=== PATIENT | male | born 1960 | race Hispanic/Latino ===

== ENCOUNTER 2017-09-05 10:10 | Emergency (ER) | payer OTHER ==
[2017-09-05 10:29] VITALS: RESP 18; TEMP 98.4; BMI 21.4
[2017-09-05] MEDS ORDERED: Sodium Chloride 0.9% 1,000 ML IV STA (11:26)
--- NOTE | 2017-09-05 11:29 | ED PDOC ---
Arrival/HPI - General Chief Complaint: GI Problem Time Seen by Provider: 09/05/17 10:55 Historian: Patient - History of Present Illness Narrative History of Present Illness (Text): 09/05/17 11:26 A 56 year old male, with no significant past medical history, presents to the emergency department with 2 week duration diarrhea. The patient states that he recently discontinued a medication, Lexapro, that he was taking for 12 years when the symptoms began 1-2 weeks after discontinuing. When he began to take the same medication once again the symptoms did not resolve. He also notes that he has been feeling a "flutter" like heart symptom recently that occurs randomly. He notes that he has been under a lot of recent stress. He reports in the past he has had similar symptoms when he is anxious or under stress. States current symptoms are different in the sense that diarrhea occurs in the morning "three to four loose stools" and then resolves later in the day. No bloody stool. No recent travel. No heat or cold intolerance. states in the morning "he has a tough time getting going" for what she perceives as being extremely anxious. No suicidal or homicidal ideation. Denies depression. PMD: Dr. Gamboa Time/Duration: Other (2 weeks) Symptom Onset: Sudden Symptom Course: Unchanged Activities at Onset: Rest, Light Context: Home Past Medical History - Provider Review Nursing Documentation Reviewed: Yes - Travel History If Yes, travel location?: [place] - Past History Past History: No Previous - Infectious Disease Hx of Infectious Diseases: None - Cardiac Hx Cardiac Disorders: No - Pulmonary Hx Respiratory Disorders: No - Neurological Hx Neurological Disorder: No - HEENT Hx HEENT Disorder: No - Renal Hx Renal Disorder: No - Endocrine/Metabolic Hx Endocrine Disorders: No - Hematological/Oncological Hx Blood Disorders: No - Integumentary Hx Dermatological Disorder: No - Musculoskeletal/Rheumatological Hx Musculoskeletal Disorders: No Hx Arthritis: No (knees) - Gastrointestinal Hx Gastrointestinal Disorders: No - Genitourinary/Gynecological Hx Genitourinary Disorders: No - Psychiatric Hx Anxiety: Yes Hx Depression: Yes Hx Substance Use: No - Past Surgical History Past Surgical History: No Previous - Anesthesia Hx Anesthesia: No Hx Anesthesia Reactions: No Hx Malignant Hyperthermia: No - Suicidal Assessment Feels Threatened In Home Enviroment: No Family/Social History - Physician Review Nursing Documentation Reviewed: Yes Family/Social History: No Known Family HX Smoking Status: Never Smoked Hx Alcohol Use: No Hx Substance Use: No Allergies/Home Meds Allergies/Adverse Reactions: Allergies No Known Allergies Allergy (Verified 12/12/12 22:55) Home Medications: Home Meds Medication Instructions Recorded Confirmed Escitalopram Oxalate [Lexapro] 10 mg PO DAILY 12/12/12 09/05/17 Review of Systems - Review of Systems Constitutional: Fatigue. absent: Fevers, Night Sweats Eyes: absent: Vision Changes, Eye Pain ENT: absent: Hearing Changes Respiratory: absent: SOB, Cough, Wheezing Cardiovascular: Palpitations. absent: Chest Pain, Edema, Calf Pain, ROSARIO, Orthopnea Gastrointestinal: Abdominal Pain, Diarrhea. absent: Stool Changes, Constipation , Nausea, Vomiting, Hematemesis, Anorexia Genitourinary Male: absent: Dysuria, Frequency, Hematuria, Urinary Output Changes Musculoskeletal: absent: Back Pain, Neck Pain Skin: absent: Rash Neurological: absent: Headache, Dizziness, Focal Weakness Endocrine: Diaphoresis. absent: Polyuria, Polydipsia Hemo/Lymphatic: absent: Easy Bleeding, Easy Bruising Psychiatric: Anxiety. absent: Depression, Suicidal Ideation Physical Exam - Physical Exam Narrative Physical Exam (Text): 09/05/17 11:31 Head: Atraumatic. Normocephalic. Eyes: PERRL. EOMI. Conjunctivae are not pale. No proptosis. No exopthalmos. ENT: Mucous membranes are moist and intact. Oropharynx is clear and symmetric. Neck: Supple. Full ROM. No JVD. No lymphadenopathy. No thyromegaly. Cardiovascular: Regular rate. Regular rhythm. No murmurs, rubs, or gallops. Distal pulses are 2+ and symmetric. Pulmonary/Chest: No evidence of respiratory distress. Clear to auscultation bilaterally. No wheezing, rales or rhonchi. Abdominal: Soft and non-distended. There is no tenderness. No rebound, guarding, or rigidity. No organomegaly. Good bowel sounds. Back: No CVA tenderness. No midline tenderness. Extremities: No edema. No cyanosis. No clubbing. Full range of motion in all extremities. No calf tenderness. Skin: Skin is warm and dry. No petechiae. No purpura. Neurological: Alert, awake, and oriented. Not tremulous. Not hyperreflexive. NO focal motor or sensory deficits. No meningeal signs. Psychiatric: Good eye contact. Anxious. Denies depression or suicidal ideation. Vital Signs Reviewed: Yes Vital Signs Temp Pulse Resp BP Pulse Ox 09/05/17 16:45 62 18 104/65 99 09/05/17 15:46 73 18 115/67 99 09/05/17 12:25 67 18 124/78 100 09/05/17 10:18 98.4 F 69 18 111/79 99 Temperature: Afebrile Blood Pressure: Normal Pulse: Regular Respiratory Rate: Normal Appearance: Positive for: Well-Appearing, Non-Toxic, Comfortable Pain Distress: Mild Mental Status: Positive for: Alert and Oriented X 3 Medical Decision Making ED Course and Treatment: 09/05/17 11:31 Impression: A 56 year old male presents to the emergency department for 2 week duration diarrhea. Differential Diagnosis included but are not limited to: Anxiety vs. Medication Withdrawal vs. Endocrine Disorder vs. Colitis vs Inflammatory Bowel Disease Plan: -- EKG -- Chest X-ray -- Labs -- Urinalysis -- Pepcid and IV Fluids -- Reassess and disposition Prior Visits: Notes and results from previous visits were reviewed. Patient was last seen in the emergency department on 11/15/15 the patient was seen in the emergency department for dizziness. The patient was discharged home with a diagnosis of gastroenteritis on Nexium and Zofran. The patient was advised to follow up with PMD. Progress Notes: Patient's at bedside, supplements history. EKG with no acute st elevations. Exam not consistent with endocrine EMERGENCY, although I reviewed need to follow-up thyroid function tests with Dr. Gamboa. Symptoms for several weeks, appeared to develop after discontinuation of Lexapro. On exam, the patient was found to have NO abdominal pain, no chest pain or pleuritic discomfort. No hypoxia. No chest pain with exertion. No symptomatic arrhythmias noted on monitor. Patient has follow-up with applications engineer Dr. Joshi this Thursday. CHEST X-RAY Dictator : Joe Ann MD Report Date : 09/05/2017 13:56:03 IMPRESSION: No active disease. I reviewed with patient and family his medication, states Lexapro was prescribed by Dr. Kincaid several years ago. He reports some anxiety and increased stressors at work. He was evaluated by P[facility], and outpatient follow-up reviewed. Patient tolerated does of xanax in emergency department with benefit. Patient has been advised of caution taking Lexapro with xanax, although dose given in emergency department resulted in no respiratory distress or sedation. Patient evaluated by hospitalist in emergency department, as symptoms atypical for acute cardiac disease and he has cardiology follow-up, will discharge. Stressed need for follow-up with Dr. Gamboa, and re-evaluation of thyroid tests. - Lab Interpretations Lab Results: 09/05/17 11:37 09/05/17 11:37 Lab Results 09/05/17 11:53: POC Glucose (mg/dL) 88 09/05/17 11:37: Thyroxine (T4) 13.1 H, TSH 3rd Generation 0.70 09/05/17 11:37: Sodium 141, Chloride 104, Potassium 3.9, Carbon Dioxide 22, Anion Gap 19, BUN 17, Creatinine 1.0, Est GFR ( Amer) > 60, Est GFR (Non- Af Amer) > 60, Random Glucose 98, Calcium 9.4, Total Bilirubin 1.1, AST 18, ALT 22, Alkaline Phosphatase 69, Lactate Dehydrogenase 294 L, Total Creatine Kinase 62, Troponin I < 0.01, Total Protein 7.7, Albumin 4.7, Globulin 3.0, Albumin/ Globulin Ratio 1.6 09/05/17 11:37: pO2 23 L, VBG pH 7.41, VBG pCO2 38.0 L, VBG HCO3 24.1, VBG Total CO2 25.3, VBG O2 Sat (Calc) 57.3, VBG Base Excess -0.3 L, VBG Potassium 3.8, Sodium 137.0, Chloride 105.0, Glucose 95, Lactate 1.7, FiO2 21.0, Venous Blood Potassium 3.8 09/05/17 11:37: Urine Color Yellow, Urine Appearance Clear, Urine pH 6.0, Ur Specific [place] 1.010, Urine Protein Trace H, Urine Glucose (UA) Negative, Urine Ketones 40 H, Urine Blood Large H, Urine Nitrate Negative, Urine Bilirubin Negative, Urine Urobilinogen 0.2, Ur Leukocyte Esterase Negative, Urine RBC 2 - 5, Urine WBC 0 - 2, Urine Bacteria Few, Hyaline Casts 0 - 2 09/05/17 11:37: PT 11.8, INR 1.07, APTT 28.4 09/05/17 11:37: WBC 4.8, RBC 4.87, Hgb 14.7, Hct 42.2, MCV 86.7, MCH 30.2, MCHC 34.8, RDW 12.6, Plt Count 187, MPV 9.6, Gran % 66.5, Lymph % (Auto) 25.1, [place] % (Auto) 7.2 H, Eos % (Auto) 0.8 L, Baso % (Auto) 0.4, Gran # 3.21, Lymph # 1.2 , [place] # 0.4, Eos # 0.0, Baso # 0.02 I have reviewed the lab results: Yes - RAD Interpretation Radiology Orders: 09/05/17 11:26 CHEST PORTABLE [RAD] Stat - EKG Interpretation Interpreted by ED Physician: Yes Type: 12 lead EKG - Medication Orders Current Medication Orders: Discontinued Medications Alprazolam (Xanax) 0.25 mg PO STAT STA Stop: 09/05/17 13:59 Last Admin: 09/05/17 14:23 Dose: 0.25 mg Famotidine (Pepcid) 20 mg IVP STAT STA Stop: 09/05/17 11:27 Last Admin: 09/05/17 11:50 Dose: 20 mg IVP Administration Document 09/05/17 11:50 GMD (Rec: 09/05/17 11:50 GMD [id number]) Charges for Administration # of IVP Administrations 1 Sodium Chloride (Sodium Chloride 0.9%) 1,000 mls @ 1,000 mls/hr IV .Q1H STA Stop: 09/05/17 12:25 Last Admin: 09/05/17 11:34 Dose: 1,000 mls/hr eMAR Start Stop Document 09/05/17 11:34 GMD (Rec: 09/05/17 11:36 GMD [facility] [id number]) Intravenous Solution Start Date 09/05/17 Start Time 11:35 End Date 09/05/17 End time 12:35 Total Infusion Time 60 - Scribe Statement The provider has reviewed the documentation as recorded by the Emile Lane Provider Scribe Attestation: All medical record entries made by the Scribe were at my direction and personally dictated by me. I have reviewed the chart and agree that the record accurately reflects my personal performance of the history, physical exam, medical decision making, and the department course for this patient. I have also personally directed, reviewed, and agree with the discharge instructions and disposition. Disposition/Present on Arrival - Present on Arrival Any Indicators Present on Arrival: No History of DVT/PE: No History of Uncontrolled Diabetes: No Urinary Catheter: No History of Decub. Ulcer: No History Surgical Site Infection Following: None - Disposition Have Diagnosis and Disposition been Completed?: Yes Diagnosis: Anxiety, Diarrhea Disposition: HOME/ ROUTINE Disposition Time: 16:40 Patient Plan: Discharge Condition: GOOD Discharge Instructions (ExitCare): Chronic Diarrhea (ED), Anxiety (ED) Additional Instructions: Follow-up with Dr. Joshi this week as directed. Follow-up with Dr. Gamboa this week. Take Xanax only as directed. Do not drive or operate heavy machinery while taking this medication. For any fevers, chills, chest pain, shortness of breath, headaches, abdominal pain, nausea or vomiting, get rechecked. For any persistence or worsening of any symptoms, get rechecked. Prescriptions: Alprazolam [Xanax] 0.25 mg PO BID PRN #10 tablet PRN Reason: Anxiety Forms: [employer] (Chinese)
[2017-09-05 11:43] LABS: BASO # 0.02 K/mm3 (0.0-2.0); BASO % 0.4 % (0.0-3.0); EOS % 0.8 % (1.5-5.0); GRAN # 3.21 (1.4-6.5); GRAN % 66.5 % (50.0-68.0); HEMATOCRIT 42.2 % (42.0-52.0); LYMPH # 1.2 (1.2-3.4); LYMPH % 25.1 % (22.0-35.0); MEAN CELL VOLUME 86.7 fl (80.0-105.0); MEAN CORPUSCULAR HEMOGLOBIN 30.2 pg (25.0-35.0); MEAN CORPUSCULAR HGB CONC 34.8 g/dl (31.0-37.0); MEAN PLATELET VOLUME 9.6 fl (7.0-11.0); MONO # 0.4 (0.1-0.6); MONO % 7.2 % (1.0-6.0); RED CELL DISTRIBUTION WIDTH 12.6 % (11.5-14.5); URINE BILIRUBIN NEGATIVE (NEGATIVE); URINE BLOOD LARGE (NEGATIVE); URINE GLUCOSE (UA) NEGATIVE (NEGATIVE); URINE KETONE 40 mg/dL (NEGATIVE); URINE LEUKOCYTE ESTERASE NEGATIVE Leu/uL (NEGATIVE); URINE PROTEIN TRACE mg/dL (<30 mg/dL); URINE UROBILINOGEN 0.2 E.U./dL (<1 E.U./dL); WHITE BLOOD COUNT 4.8 10^3/ul (4.5-11.0)
[2017-09-05 11:47] LABS: URINE APPEARANCE CLEAR (CLEAR); URINE COLOR YELLOW (YELLOW)
[2017-09-05 11:57] LABS: VENOUS BLOOD GAS BASE EXCESS -0.3 mmol/L (0.0-2.0); VENOUS BLOOD PH 7.41 (7.32-7.43)
[2017-09-05 11:58] LABS: INR 1.07 (0.93-1.08); PARTIAL THROMBOPLASTIN TIME 28.4 Seconds (25.1-36.5)
[2017-09-05 12:02] LABS: ALB/GLOB RATIO 1.6 (1.1-1.8); ALKALINE PHOSPHATASE 69 U/L (38-126); ALT/SGPT 22 U/L (7-56); AST/SGOT 18 U/L (17-59); BILIRUBIN,TOTAL 1.1 mg/dL (0.2-1.3); BLOOD UREA NITROGEN 17 mg/dL (7-21); CALCIUM 9.4 mg/dL (8.4-10.5); CARBON DIOXIDE 22 mmol/L (21-33); CHLORIDE 104 mmol/L (98-107); GFR AFRICAN-AMERICAN > 60; GLUCOSE,RANDOM 98 mg/dL (70-110); POTASSIUM 3.9 mmol/L (3.6-5.0); SODIUM 141 mmol/L (132-148); TOTAL PROTEIN 7.7 g/dL (5.8-8.3); URINE BACTERIA FEW (NEG); URINE WBC 0 - 2 /hpf (0-6)
[2017-09-05 12:14] LABS: TROPONIN I < 0.01 ng/mL
[2017-09-05 12:18] LABS: T4 13.1 ug/dL (5.5-11.0)
[2017-09-05 12:32] LABS: THYROID STIMULATING HORMONE 0.7 mIU/mL (0.46-4.68)
--- NOTE | 2017-09-05 13:53 | CP.PCM.CON ---
<Christian Atkinson - Last Filed: 09/05/17 14:30> History of Present Illness - History of Present Illness History of Present Illness: Medicine Consult note: 56M with no significant presents to the ED with diarrhea x 2 weeks. Patient states that he has been taking Lexapro for 12 years and he recently stopped it which the diarrhea started. He than restarted the medication but his symptoms has continued. Pt states that his diarrhea is non bloody and is just in the morning with no further episodes through out the day. He does state that he gets this mainly when he is anxious. Recently at work he has been more stressed than usual. He denies any n/v or abd pain. He also state that his heart flutters occasionally through out the day. He denies any sob, cp, or palpitations. 12 point ROS performed and negative other than stated above. PMH: Vit B12 def PSH: cystoscopy for blood in urine Med: Lexapro and Vit B12 ALL: nka FH: both parents with heart dx SH: denies drinking, drugs, and smoking PMD: Dr. Gamboa Review of Systems - Review of Systems All systems: reviewed and no additional remarkable complaints except Past Patient History - Infectious Disease Hx of Infectious Diseases: None - Past Social History Smoking Status: Never Smoked - CARDIAC Hx Cardiac Disorders: No - PULMONARY Hx Respiratory Disorders: No - NEUROLOGICAL Hx Neurological Disorder: No - HEENT Hx HEENT Problems: No - RENAL Hx Chronic Kidney Disease: No - ENDOCRINE/METABOLIC Hx Endocrine Disorders: No - HEMATOLOGICAL/ONCOLOGICAL Hx Blood Disorders: No - INTEGUMENTARY Hx Dermatological Problems: No - MUSCULOSKELETAL/RHEUMATOLOGICAL Hx Musculoskeletal Disorders: No Hx Arthritis: No (knees) - GASTROINTESTINAL Hx Gastrointestinal Disorders: No - GENITOURINARY/GYNECOLOGICAL Hx Genitourinary Disorders: No - PSYCHIATRIC Hx Anxiety: Yes Hx Depression: Yes Hx Substance Use: No - SURGICAL HISTORY Hx Surgeries: No - ANESTHESIA Hx Anesthesia: No Hx Anesthesia Reactions: No Hx Malignant Hyperthermia: No Meds Allergies/Adverse Reactions: Allergies Allergy/AdvReac Type Severity Reaction Status Date / Time No Known Allergies Allergy Verified 12/12/12 22:55 Physical Exam - Constitutional Appears: No Acute Distress - Head Exam Head Exam: ATRAUMATIC, NORMOCEPHALIC - Eye Exam Eye Exam: EOMI, PERRL - ENT Exam ENT Exam: Mucous Membranes Moist - Respiratory Exam Respiratory Exam: Clear to Auscultation Bilateral. absent: Rales, Rhonchi, Wheezes - Cardiovascular Exam Cardiovascular Exam: REGULAR RHYTHM, +S1, +S2 - GI/Abdominal Exam GI & Abdominal Exam: Normal Bowel Sounds, Soft. absent: Tenderness - Extremities Exam Extremities exam: Negative for: calf tenderness, pedal edema - Neurological Exam Neurological exam: Alert, Oriented x3 - Psychiatric Exam Psychiatric exam: Normal Affect, Normal Mood - Skin Skin Exam: Dry, Intact, Warm Results - Vital Signs Recent Vital Signs: Last Vital Signs Temp 98.4 F 09/05/17 10:18 Pulse 67 09/05/17 12:25 Resp 18 09/05/17 12:25 BP 124/78 09/05/17 12:25 Pulse Ox 100 09/05/17 12:25 - Labs Result Diagrams: 09/05/17 11:37 09/05/17 11:37 Assessment & Plan - Assessment and Plan (Free Text) Assessment: 56M with no significant presents to the ED with diarrhea x 2 weeks. Pt also complains of his heart occasionally fluttering. Plan: 1: Diarrhea likely 2/2 stress related - Not present through out the day therefore unlikely an infectious etiology - Advised patient to come back if symptoms worsen for infectious work up 2. Heart flutter - Pt has an appointment for stress test as an outpt on Thursday therefore refused being admitted for cardiac work up including - Echo, stress test and serial troponin. - Will follow up as an outpt - Was advised to come back to the ED if symptoms worsen Pt and plan was seen, reviewed and discussed in detail with Dr Khalil. <Елена Khalil - Last Filed: 09/06/17 13:30> Results - Vital Signs Recent Vital Signs: Last Vital Signs Temp 98.4 F 09/05/17 10:18 Pulse 62 09/05/17 16:45 Resp 18 09/05/17 16:45 BP 104/65 09/05/17 16:45 Pulse Ox 99 09/05/17 16:45 - Labs Result Diagrams: 09/05/17 11:37 09/05/17 11:37 Labs: Laboratory Results - last 24 hr 09/05/17 11:53 POC Glucose (mg/dL) 88 Attending/Attestation - Attestation I have personally seen and examined this patient.: Yes I have fully participated in the care of the patient.: Yes I have reviewed all pertinent clinical information: Yes Notes (Text): 09/06/17 13:25 Patient was seen and examined with bilingual medical assistant. 56 male with PMH of anxiety was evaluated in ER, H/O diarrhea 3-4 times per day , only when he wake up.No diarrhea for the rest of the day and there is diarrhea at night time.Patient renal functions are normal.Diarrea is likely related with stress and anxiet.He will follow up with PCP , if no improvement will need out patient GI work up. No H/o any chest pain, off and on feeling of palpitation lasting less than few second, no H/O dizziness, lightheadness, chest pain or dyspnea. Patient has been restarted on his Ashish pro. The admission for observation in tele was offered but patient and both refused.He is already scheduled for stress test with his cardiology next Thursday and is planning to follow up with PCP,Psychiatry and cardiology.. Management plan was discussed in detail with patient Education was provided.
--- NOTE | 2017-09-05 13:57 | RAD ---
HISTORY: chest pain COMPARISON: 11/15/2015 FINDINGS: LUNGS: No active pulmonary disease. PLEURA: No significant pleural effusion identified, no pneumothorax apparent. CARDIOVASCULAR: Normal. OSSEOUS STRUCTURES: No significant abnormalities. VISUALIZED UPPER ABDOMEN: Normal. OTHER FINDINGS: None. IMPRESSION: No active disease.
[2017-09-05 15:49] VITALS: O2SAT 99
[2017-09-05 16:46] VITALS: BP 104/65; PULSE 62
--- NOTE | 2017-09-05 22:17 | CARD ---
APPROVED REPORT EKG Measurement Heart [id number] <Conclusion> Sinus bradycardia with short OK ST abnormality, possible digitalis effect Abnormal ECG
== END 2017-09-05 16:55 | disposition home or self-care (01) ==
LOC: ED 10:10 → UNDOADMOB 12:46 → ERH 12:46 → ED 16:55
DX: R19.7 Diarrhea, unspecified (principal); F41.9 Anxiety disorder, unspecified
CPT/HCPCS: 71010; 80053; 81001; 82550; 82803; 82948; 83615; 84436; 84443; 84484; 85025; 85610; 85730; 90791; 93005; 96361; 96374; 99285; J7040

== ENCOUNTER 2019-02-01 08:19 | Outpatient (CLI) | payer OTHER | END 2019-02-01 08:20 | disposition home or self-care (01) | LOC: LAB 08:19 ==

== ENCOUNTER 2019-02-02 14:51 | Outpatient (CLI) | payer OTHER | END 2019-02-02 14:52 | disposition home or self-care (01) | LOC: LAB 14:51 ==

== ENCOUNTER 2019-02-09 07:55 | Outpatient (CLI) | payer OTHER | END 2019-02-09 07:56 | disposition home or self-care (01) | LOC: LAB 07:55 ==